=== PATIENT | male | born 1980 | race Caucasian/White ===

== ENCOUNTER 2019-11-29 04:28 | Emergency (ER) | payer OTHER ==
[~2019-11-29] VITALS: Ht 177.8 cm; Wt 68.0 kg
[2019-11-29] MEDS ORDERED: MELOXICAM7.5 MG PO (04:55)
[2019-11-29] MEDS ORDERED: HYDROCO/APAP1 TA9 PO (04:55)
[2019-11-29] MEDS ORDERED: GABAPENTIN100 MG PO (04:56)
[2019-11-29] MEDS ORDERED: ROBAXIN-750750 MG PO (04:56)
[2019-11-29 05:43] LABS: HEMOGLOBIN 11.5 g/dl (14.0-18.0); IMMATURE GRANULOCYTES 0.5 % (0.0-5.0); MEAN CELL VOLUME 87.6 fL CALC (80.0-100.0); MEAN CORPUSCULAR HGB CONC 31.9 g/dL CAL (32.0-36.0); NEUT# 10.31 thou/uL (1.82-7.42); RED BLOOD COUNT 4.11 mill/uL (4.70-6.10); RED CELL DISTRI WIDTH 13.2 % (11.5-15.5)
[2019-11-29 06:01] LABS: ALBUMIN 3.3 g/dL (3.2-5.0); ALKALINE PHOSPHATASE 162 u/l (38-126); ANION GAP 13 (6-22 (CALC)); BILIRUBIN, TOTAL 0.5 mg/dL (0.0-1.4); BUN 11 mg/dL (9-20); BUN/CREATININE RATIO 16 (12-20 (CALC)); CARBON DIOXIDE 30 mmol/l (22-30); CHLORIDE 96 mmol/l (95-108); CREATININE 0.7 mg/dL (0.7-1.3); GFR > 60 ML/MIN (>=60 (CALC)); GFR FOR AFR.AMER. > 60 ML/MIN (>=60 (CALC)); POTASSIUM 3.5 mmol/l (3.5-5.1); SGOT/AST 34 u/l (17-59); SODIUM 136 mmol/l (137-146); TOTAL PROTEIN 6.2 g/dL (6.3-8.2)
[2019-11-29 06:03] LABS: D-DIMER 2.67 mg/L (0.19-0.60)
[2019-11-29 06:08] LABS: ACT PARTIAL THROMBO TIME 27.9 SECONDS (20.0-32.5); PROTHROMBIN TIME 9.9 SECONDS (9.0-12.5)
[2019-11-29 10:20] VITALS: BP 146/72
--- NOTE | 2019-11-30 09:15 | NUR ---
PRELIMINARY BLOOD CX RESULTS SHOW GRAM POSITIVE COCCI IN 1/4 BOTTLES, LIKELY A CONTAMINANT. RESULTS REPORTED TO DR CEBALLOS. NO ACTION NEEDED TODAY, ASKED THAT WE FOLLOW UP WITH FINAL BLOOD CX RESULTS
--- NOTE | 2019-12-01 08:58 | NUR ---
FINAL BLOOD CX RESULTS SHOW MRSA IN 3/4 BOTTLES. RESULTS CALLED TO DR ORELLANA, CALLED PT . CALLED [facility], PT IS ADMITTED THERE, SPOKE WITH NURSE DONNELL, REPORTED RESULTS, FAXED TO [phone]
== END 2019-11-29 10:20 | disposition left against medical advice (07) | DRG 863 ==
LOC: ED 04:28
PROVIDERS: Family Medicine
DX: T81.41XA Infection following a procedure, superficial incisional surgical site, initial encounter (principal); Y83.1 Surgical operation with implant of artificial internal device as the cause of abnormal reaction of the patient, or of later complication, without mention of misadventure at the time of the procedure; Z91.19 Patient's noncompliance with other medical treatment and regimen; S82.892A Other fracture of left lower leg, initial encounter for closed fracture; X58.XXXA Exposure to other specified factors, initial encounter

== ENCOUNTER 2024-03-16 17:01 | Emergency (ER) | payer SELFPAY ==
[~2024-03-16] VITALS: Ht 177.8 cm; Wt 69.0 kg
[~2024-03-16 17:01] MED LIST: GABAPENTIN100 MG PO; HYDROCO/APAP1 TA9 PO; MELOXICAM7.5 MG PO; ROBAXIN-750750 MG PO
[2024-03-16 17:16] VITALS: BP 120/76
[2024-03-16 17:30] VITALS: BP 112/72
[2024-03-16 17:45] VITALS: BP 115/77
[2024-03-16] MEDS ORDERED: DOXYCYCLINE HYCLATE 100 MG/CAP PO ONE (17:55)
[2024-03-16] MEDS ORDERED: VIBRAMYCIN100 M2 PO (17:58)
[2024-03-16] MEDS ORDERED: MUPIROCIN2 % EX (17:58)
[2024-03-16 18:00] VITALS: BP 112/70
[2024-03-16 18:08] VITALS: BP 115/77
== END 2024-03-16 18:14 | disposition home or self-care (01) | DRG 603 ==
LOC: ED 17:01
DX: L08.9 Local infection of the skin and subcutaneous tissue, unspecified (principal); B95.8 Unspecified staphylococcus as the cause of diseases classified elsewhere; Z86.14 Personal history of Methicillin resistant Staphylococcus aureus infection; Z72.0 Tobacco use